=== PATIENT | male | born 1935 | race Caucasian/White ===

== ENCOUNTER 2018-02-26 10:02 | Inpatient (IN) | END 2018-03-06 18:20 | DRG 481 ==

== ENCOUNTER 2018-06-16 10:09 | Emergency (ER) | END 2018-06-16 13:53 | disposition home or self-care (01) ==

== ENCOUNTER 2018-06-27 07:50 | Day surgery (SDC) | END 2018-06-27 09:51 | disposition home or self-care (01) ==

== ENCOUNTER 2018-07-03 05:50 | Inpatient (IN) | END 2018-07-05 11:40 | disposition home or self-care (01) | DRG 511 ==